=== PATIENT | female | born 1985 | race Caucasian/White ===

== ENCOUNTER 2025-09-02 01:44 | Emergency (ER) | payer BC, SELFPAY ==
--- OUTSIDE RECORDS SUMMARY | 2025-02-26 04:00 | XMS_ITS ---
Author Organization [facility] Address [address] [place] [address] Care Team Providers Care Aviation Neuropsychologist Name Role Phone DominikLoni Unavailable [phone] Migration, Provider Unavailable Unavailable REASON FOR VISIT EMR-Minor Encounters Encounter Location Date Provider Diagnosis [facility] [address] [place], [place] [id number] 02/26/2025 Prov ider Migration Plan Of Treatment No Information Progress Notes * BARRERA OTERO LDOB: 3 (40 yo F)Acc No.[id number]:02/26/2025 Patient: Naya SOTELO BARRERA Wylie :1985 A ge:39 Y S ex:Female Address:[address] [place] [address], [address] Subjective: * Chief Complaints: * E MR-Minor * * Date:
--- OUTSIDE RECORDS SUMMARY | 2025-02-27 04:00 | XMS_ITS ---
Author Organization [facility] Address [address] [place] [address] Care Team Providers Care Seater Grinder Name Role Phone DominikLoni Unavailable [phone] Migration, Provider Unavailable Unavailable REASON FOR VISIT EMR-Minor Encounters Encounter Location Date Provider Diagnosis [facility] [place] [address] [place], [place] [id number] 02/27/2025 Prov ider Migration Plan Of Treatment No Information Progress Notes * BARRERA OTERO LDOB: 3 (40 yo F)Acc No.[id number]:02/27/2025 Patient: Naya SOTELO BARRERA Wylie :1985 A ge:39 Y S ex:Female Address:[address] [place] [address], [address] Subjective: * Chief Complaints: * E MR-Minor * * Date:
[2025-09-02] VITALS (12 sets, daily range): BP systolic 130–143; BP diastolic 80–94; PULSE 108; RESP 16; TEMP 36.9; O2SAT 97–100
--- NOTE | ~2025-09-02 | XR_ITS ---
XR elbow RT 2V 09/02/2025 03:19 Indication: 2 views right elbow Procedure: 2 views right elbow Comparison: No prior studies for comparison. Findings: There is a joint effusion. No acute fracture identified. No foreign bodies. There is anatomic alignment. Impression: 1: Moderate joint effusion. No definitive fracture. Recommend follow-up x-ray in 7-to 10 days to assess for occult fracture as clinically warranted. Reviewed, dictated and finalized at location B. Impression: 1: Moderate joint effusion. No definitive fracture. Recommend follow-up x-ray i n 7-to 10 days to assess for occult fracture as clinically warranted.
--- NOTE | ~2025-09-02 | CT_ITS ---
EXAMINATION: CT elbow RT wo con DATE: 09/02/2025 04:17 INDICATION: Right elbow pain with joint effusion TECHNIQUE: High resolution computed tomography (CT) of the right elbow was performed without intravenous contrast. Additional sagittal and coronal reconstructions were performed. Automated exposure control and iterative reconstruction technique were employed. The dose-length product was 460.15 mGy-cm. COMPARISON: Radiograph dated 09/02/2025 FINDINGS: Bone alignment is normal. No fracture. Moderate-sized elbow joint effusion. Joint spaces appear relatively preserved. No cortical erosions or periosteal reaction. Soft tissues are otherwise unremarkable. IMPRESSION: 1. Moderate-sized right elbow joint effusion. No osseous abnormality. Reviewed, dictated and finalized at location A.
--- NOTE | ~2025-09-02 | XR_ITS ---
XR wrist RT min 3V 09/02/2025 03:19 INDICATION: Right wrist pain PROCEDURE: 4 views right wrist COMPARISON: No prior studies for comparison. FINDINGS: Fracture, dislocation or subluxation is not identified. The soft tissues appear within normal limits. No foreign bodies are identified. IMPRESSION: 1: NO ACUTE BONE OR JOINT ABNORMALITY IDENTIFIED. Reviewed, dictated and finalized at location B.
--- NOTE | 2025-09-02 02:44 | ED_ITS ---
HPI - Extremity Problem General Chief complaint: Extremity Problem,Nontraumatic Stated complaint: arm pain Time Seen by Provider: 09/02/25 02:31 Source: patient Mode of arrival: ambulatory Limitations: no limitations History of Present Illness HPI Narrative: Right hand dominant Patient presents with right arm pain. Yesterday morning she started to have pain at her right elbow, throughout, both poseteriorly and in the antecubital fossa. No neck/shoulder pain. Pain has progressed, extending into right wrist/hand. No trauma/ injury. Fingers not involved. Pain increases with any movement and she has decreased range of motion as makign a fist intensifies the pain. She took 200mg ibuprofen x2 tablts at 8pm. Has tried ice/heat. Describes it as a shooting pain. PCP Oksana Saeed through [facility] [place]. This has never happened before. No alex parethesias, just pain. 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 Denies having a pad that angulates her wrists at the desk when typing. Related Data Allergies Allergy/AdvReac Type Severity Reaction Status Date / Time acetaminophen (From Vicodin) AdvReac Nausea Verified 09/02/25 01:59 hydrocodone (From Vicodin) AdvReac Nausea Verified 09/02/25 01:59 PMFSH Past Medical History Medical History Right hand dominant Social History Social History Occupation/Education: occupation Additional occupation/education comments: employed (desk job, typing) Exam 2 Narrative: GENERAL: Well-appearing, well-nourished, occasionally in acute distress. HEAD: Normocephalic, atraumatic. EYES: Non injected, non icteric ENT: Nares clear, no rhinorrhea or epistaxis. Gross auditory acuity intact. NECK: Supple. No meningismus. CHEST: Speaking in full sentences. No respiratory distress. HEART: Tachycardic rate and rhythm. . ABDOMEN: Soft, nondistended. EXTREMITIES: COmpartments soft. Strong 2+ radial pulse and brisk capillary refill. Tenderness to palpation at the elbow and wrist but throughout, not localized. Mild edema. SKIN: Warm, dry, no rash. no erythema or ecchymosis or lacerations/abrasions/lesions NEURO: No focal deficits. Alert and oriented. Answering questions. Following commands. Normal speech without aphasia or dysarthria. Sensation intact throughout the upper elbow forearm and wrist, hyperalgesic. PSYCH: Normal mood and affect. Course Vital Signs Vital signs: Vital Signs Temperature 98.4 F 09/02/25 01:54 Pulse Rate 108 H 09/02/25 01:54 Respiratory Rate 16 09/02/25 01:54 Blood Pressure 143/80 H 09/02/25 01:54 Pulse Oximetry 98 09/02/25 01:54 Oxygen Delivery Room Air 09/02/25 01:54 Temperature 98.4 F 09/02/25 01:54 Pulse Rate 108 H 09/02/25 01:54 Respiratory Rate 16 09/02/25 01:54 Blood Pressure 133/86 09/02/25 03:01 Pulse Oximetry 99 09/02/25 05:00 Oxygen Delivery Room Air 09/02/25 01:54 MDM - Extremity (Nontraumatic) MDM Narrative Medical decision making narrative: Right hand dominant female Patient presents with right elbow and arm pain as well as wrist pain. No trauma/injury. In the emergency department she is afebrile with vital signs show mild tachycardia as well as mild hypertension. Given plain film interpretation, CT ordered. Normocytic anemia with no prior for comparison. CRP within normal limits. ESR is elevated. Patient was given Barnes (as well as Zofran since prior adverse effect of nausea from Vicodin). She tells the RN at approximately 5am still having pain, intiial had no effect. Toradol ordered. CPK normal. Unclear cause of patient's pain. Fits distribution of both lateral and medial epicondylitis but having both simultaneously is a bit strange. The distrubution is localized between wrist and elbow, not more proximally. Features don't extend fully distally to fingers. Patient may require EMG/nerve conduction study or MRI imaging alternatively. Discharged and advised follow up with PCP. Rx for OTC analgesic. Differential Diagnosis Differential diagnosis: Likely herpes zoster, cellulitis, superficial thrombophlebitis, deep venous thrombosis of upper extremity and other (epicondylitis; carpal tunnel; ulner/radial nerve radiculopathy; ischemia; brachial plexus injury) Lab Data Attestation: I reviewed the patient's lab results. Lab results narrative: normal renal function. 09/02/25 03:48 09/02/25 03:48 Labs: Lab Results 09/02/25 Range/Units 03:48 WBC 7.5 (4.5-10.0) K/mm3 RBC 4.00 L (4.2-5.4) M/mm3 Hgb 11.3 L (12.0-15.0) g/dL Hct 33.3 L (37.0-47.0) % MCV 83.3 (80-100) fl MCH 28.3 (26-34) pg MCHC 33.9 (32-36) g/dl RDW 11.9 (11.5-14.5) % Plt Count 284 (150-375) k/mm3 MPV 8.9 (7.4-10.4) fl Immature Gran % (Auto) 0.4 (0-0.5) % Neut % (Auto) 77.6 H (45.5-73.1) % Lymph % (Auto) 15.3 L (18.3-44.2) % Elmore % (Auto) 6.3 (2.6-8.5) % Eos % (Auto) 0.1 (0-4.4) % Baso % (Auto) 0.3 (0.2-1.2) % Lymph # (Auto) 1.15 (0.9-3.2) K/mm3 Elmore # (Auto) 0.5 (0.1-0.6) K/mm3 Eos # (Auto) 0.0 (0-0.3) K/mm3 Baso # (Auto) 0.0 (0.0-0.1) K/mm3 Abs Immat Gran (auto) 0.03 (0.00-0.031) K/mm3 Absolute Neuts (auto) 5.8 (1.3-6.7) K/mm3 Absolute Nucleated RBC 0.000 (0.0-0.012) K/mm3 Nucleated RBC % 0.0 (0.0-0.2) % ESR 56 H (0-20) mm/hr Sodium 136 L (137-145) mmol/L Potassium 3.8 (3.4-5.0) mmol/L Chloride 106 (98-107) mmol/L Carbon Dioxide 26 (22-30) mmol/L Anion Gap 4 (4-12) mmol/L BUN 8 (7-17) mg/dL Creatinine 0.49 L (0.7-1.0) mg/dL Estim Creat Clear Calc 117 ml/min Estimated GFR > 60 (59 - ) Glucose 106 (65-110) mg/dL Calcium 9.1 (8.4-10.2) mg/dL Total Creatine Kinase 33 (30-135) U/L C-Reactive Protein 1.0 (<1.0) mg/dL Imaging Data Attestation: I personally reviewed and interpreted this imaging study as follows: My impression: Initially elbow felt to be normal but based on overlapping bone structures, questionable appearance as well as possible posterior fat pad on my independent interpretation Radiologist's impression: XR R elbow Stat Rad: elbow joint effusion. No definitive fracture. Consider CT scan to rule out underlying occult fracture. XR R wrist STat Rad: No acute findings. No evidence of fracture. CT R upper extremity: Elbow joint effusion. No acute osseous abnormalities. Discharge Plan Discharge Clinical Impression: Elbow pain, right, Acute pain of right wrist, Normocytic anemia, Elevated erythrocyte sedimentation rate, Effusion, right elbow Patient Disposition: Home Condition: Stable Instructions: Antibiotic Form, Elbow Sprain (ED), Arthralgia (ED), Anemia (ED), P.R.I.C.E. Treatment (ED), Swollen Joint (ED), Elbow Strain (ED) Additional Instructions: Xray and CT scan did not reveal the cause of your symptoms. Acetaminophen/Tylenol (maximum 4000 mg per day) is safe to take with NSAIDs (ibuprofen/Motrin) for pain relief. Follow up with your primary care physician who may recommend altenative work up (e.g. advanced imaging, different pain strategies including but not limited to injections, physical therapy, etc. ) Return if new/worsening symptoms. IN the interim trial R-I-C-E (rest, ice, compression, elevation) for the first 48 hours of symptoms then transition to heat. Patient Language: Turkish Prescriptions: New ibuprofen 600 mg tablet 600 mg PO TID PRN (Reason: pain) Qty: 30 0RF acetaminophen 500 mg capsule 1,000 mg PO Q6H PRN (Reason: pain) Qty: 30 0RF Follow-up/Referrals: PHYSICIAN,DELINQUENCY PREVENTION OFFICER [Primary Care Provider, Internal Medicine] Stand Alone Forms: Work/School Release IP Time of Disposition: 06:30
[2025-09-02] MEDS: ONDANSETRON HCL ODT 4 MG TABLET PO (03:04)
[2025-09-02] MEDS: HYDROcodone/acetaminophen (*CRX) 5-325 MG TABLET 1 TAB PO (03:04)
--- OUTSIDE RECORDS SUMMARY | 2025-09-02 03:07 | XMS_ITS | Clinical Summary ---
Author Organization [facility] Address [facility] [place] [address] Care Team Providers Care Breakfast Supervisor Name Role Phone Ayesha Jackson NP Primary Care Provider [phone] [phone] Allergies Active Allergy Reactions Criticality Noted Date Comments Hydrocodone-Acetaminophen Nausea and Vomiting Low 1 01/26/2017 Medications rimegepant (NURTEC) 75 MG disintegrating tabletIndications:M enstrual migraine without status migrainosus, not intractable Take 1 tablet (75 mg total) by mouth daily as needed for Migraine. Max of 1 tablet (75 mg) in 24 hours. 8 tablet 4 Active almotriptan (AXERT) 12.5 MG tabletIndications:M enstrual migraine without status migrainosus, not intractable Take 0.5 tablets (6.25 mg total) by mouth as needed for Migraine. may repeat in 2 hours if needed 2 tablet 4 Active methylPREDNISolone, SOCRATES, (MEDROL DOSEPAK) 4 MG tabletIndications:N on-recurrent acute suppurative otitis media of right ear without spontaneous rupture of tympanic membrane Take as directed 1 each 4 Active Active Problems Problem Noted Date Diagnosed Date Hemorrhoids, unspecified hemorrhoid type 021 Menstrual migraine without s tatus migrainosus, not intractable 07/06/2021 Vitamin D deficiency 07/06/2021 Status post section 12/10/2018 Encounters Date Type Department Care Team Description 07/07/2025 Scan [facility] Scanned, Doc Med Group 06/02/2025 Results Follow-Up [facility] Family [facility] - [place] [address] [place] [address] Ayesha Jackson, RENETTA STREP A RAPID, CORONAVIRUS (COVID-19) INFLUENZA A & B ANTIGEN IA PANEL, HETEROPHILE ANTIBODIES,SCREEN, CULTURE STREP A (MG/SJS/SMD Only) from Last 3 Months Immunizations Immunization Administration Dates Next Due Dtp 06/18/1988,02/20/1985,02/08/1984 ,1983,1983 Hepatitis B Pediatric 09/15/1998,07/21/1998 Hib 07/26/1986 Hib (Generic) 07/26/1986 Influenza (Generic) 09/09/2018 MMR 05/23/1992,11/27/1984 Opv 06/18/1988,02/20/1985,02/08/1984 ,1983,1983 Polio Opv (Generic) 06/18/1988,02/20/1985,1983,1983,1983 Td 06/17/1997 Tdap (Generic) 10/10/2018 Family History Medical History Relation Comments No Known Problems Brother No Known Problems Father No Known Problems Maternal Aunt No Known Problems Maternal Grandfather No Known Problems Maternal Grandmother No Known Problems Maternal Uncle Alcohol Abuse Mother No Known Problems Paternal Aunt Cancer Paternal Grandfather Brain cance r No Known Problems Paternal Grandmother No Known Problems Paternal Uncle No Known Problems Sister Relation Status Comments Brother Father Alive Maternal Aunt Maternal Grandfather Maternal Grandmother Maternal Uncle Mother Alive Paternal Aunt Paternal Grandfather Paternal Grandmother Paternal Uncle Sister Social History Tobacco Use Types Packs/Day Years Used Date Smoking Tobacco: Never Passive Smoke Exposure: Never Smokeless Tobacco: Never Tobacco Cessation:Counseling Given: No Alcohol Use Standard Drinks/Week Comments Not Currently 0 (1 standard drink = 0.6 oz pur e alcohol) PHQ-2 Answer Date Recorded Patient Health Questionnaire-2 Score 0 05/31/2025 Comments No Sex and Gender Information Value Date Recorded Sex Assigned at Female 05/31/2025 10:57 AM CDT Legal Sex Female 7:19 PM CDT Gender Identity Female 05/31/2025 10:57 AM CDT Sexual Orientation Not on file Last Filed Vital Signs Vital Sign Reading Time Taken Comments Blood Pressure 110/60 05/31/2025 10:58 AM CDT Pulse 97 05/31/2025 11:27 AM CDT Temperature 37.9 C (100.2 F) 05/31/2025 10:58 AM CDT Respiratory Rate 16 05/31/2025 10:58 AM CDT Oxygen Saturation 100% 05/31/2025 11:27 AM CDT Inhaled Oxygen Concentration - - Weight 85.8 kg (189 lb 3.2 oz) 05/31/2025 10:58 AM CDT Height 170.2 cm (5' 7) 05/31/2025 10:58 AM CDT Body Mass Index 29.63 05/31/2025 10:58 AM CDT Plan of Treatment Health Maintenance Due Date Last Done Comments Cervical Cancer Screening Pap Smear (Age 30 to 64) Every 3 Years 1983 Hepatitis B Vaccines (3 of 3 - 3-dose series) 11/10/1998 09/15/1998, 07/21/1998 HPV Vaccines (1 - 3-dose SCDM series) 2010 Cervical Cancer Screening Pap with HPV Testing (Age 30 to 64) Every 5 Years 2013 Cervical Cancer Screening with HPV 2013 Mammogram Screening 2023 Annual Physical 01/14/2025 01/14/2024, 11/01, 07/06/2021 COVID-19 Vaccine ( - season) 2025 08/03/2021, 07/13/2021 Influenza Adult (#1) 2025 09/09/2018 DTaP, Tdap and Td Vaccines (3 - Td or Tdap) 10/10/2028 10/10/2018, 06/17/1997, 06/18/1988, Additional history exists Hepatitis C Completed 07/13/2021 PHQ-2 (Physician [place]) Completed 05/31/2025 Meningococcal B Vaccine Aged Out No l onger eligible based on patient's age to complete this topic Meningococcal Vaccine Aged Out No nicholas tessie eligible based on patient's age to complete this topic Pneumococcal Vaccine: Pediatrics (0 to 5 Years) and At-Risk Patients (6 to 49 Years) Aged Out No longer eligible based on patient's age to complete this topic RSV Immunizations Under 20 Months Aged Out No longer eligible based on patient's age to complete this topic Procedures Procedure Name Priority Date/Time Associated Diagnosis Comments HEPATITIS C ANTIBODY W/RFX TO HCV RNA Routine 07/13/2021 10:01 AM CDT Need for hepatitis C screening test from Last 3 Months or Most Recently Relevant to Health Maintenance Results * HEPATITIS C ANTIBODY W/RFX TO HCV RNA ([facility]) (07/13/2021 10:01 AM CDT) HEPATITIS C AB <0.1 0.0 - 0.9 s/co ratio [facility] INTERPRETATION Comment [facility] Comment: Negative Not infected with HCV, unless recent infection is suspected or other evidence exists to indicate HCV infection. 07/13/2021 10:0 1 AM CDT 07/13/2021 Narrative [facility] - 07/14/2021 8:07 AM CDT Performed at: [address] [facility] [id number] Dough Panner: Kojo Camp PhD, Phone: [phone] Ayesha Jackson NP LABORATORY Final Res ult [facility] [address] [place] [address] [facility] 1 from Last 3 Months or Most Recently Relevant to Health Maintenance Insurance [facility] Care Teams Breakfast Supervisor Relationship Specialty Start Date End Date Ayesha Jackson NP [address] [facility] [address] [place] [address] PCP - General NURSE PRACTITIONER 06/12/21
--- OUTSIDE RECORDS SUMMARY | 2025-09-02 03:07 | XMS_ITS | Patient Health Record ---
Author Organization 1 OF [facility]i la[facility] Address [address] [facility] [address] [place] [address] Care Team Providers Care Brand Marketing Specialist Name Role Phone Shady Bella PA-C Primary Care Provider Aleida Ann Unavailable [phone] Allergies Allergen (clinical drug ingredient) Drug/Non Drug Allergy documented on EMR Reaction Allergy Type Onset Date Status Vicodin Unknown Drug Allergy Active Reason For Referral No Information Medications Medication SIG (Take, Route, Frequency, Duration) Notes Start Date End Date Status + DHA 27-1 & 250 MG Therapy Pack as directed Orally Active Meloxicam 15 MG Tablet TAKE 1 TABLET BY MOUTH EVERY DAY; Duration: 30 Active Diclofenac Sodium 1 % Gel as directed To pical Apply no more than 4 grams to affected area of foot Q6-8 hours PRN Pain; Duration: 30 days 01/03/2023 Active Social History Tobacco Use: Social History Observation Description Date Details (start date - stop date) Never Smoker NA - NA Social History Drugs/Alcohol: Social Info Question Answer Notes Drugs Have you used drugs other than those for medical reasons in the past 12 months? No Tobacco Use: Social Info Question Answer Notes Tobacco Use/Smoking Are you a nonsmoker Additional Details Category Social Info Options Details Miscellaneous: Exercise: Sedentary Occupation: Works full-time Living with: Partner Drugs/Alcohol: Alcohol use: Social alcoho l use Problems Problem Type SNOMED Code ICD Code Onset Dates Problem Status W/U Status Risk Notes Problem Plantar fasciitis (523297312) Plantar fasciitis (M72.2) Active confirmed Problem Plantar wart of right foot (3915275820237 9101) Plantar wart of right foot (B07.0) Active confirmed Plan Of Treatment No Information Insurance Providers Payer Name Payer Address Payer Phone Subscriber Number Group Number Insured Name Patient Relationship to Insured Coverage Start Date Coverage End Date [facility] [address] [place] [address] [id number] March, Taylor Self - patient is the insured Medical (General) History Medical History History ICD Code Depression Migraines Surgical History Surgery Date(Month/Year)
--- OUTSIDE RECORDS SUMMARY | 2025-09-02 03:07 | XMS_ITS | Encounter Summary ---
Author Organization [facility] Address [address] [place] [address] Care Team Providers Care Baker Pie Name Role Phone Ayesha Jackson BUSINESS OBJECTS Primary Care Provider [phone] Encounter Details Date Type Department Care Team (Late st Contact Info) Description 10/17/2022 [facility] Message Enc [facility] Family Medicine - [place] [address] [facility] [address] [place] [address] [facility] Annual physical Social History Tobacco Use Types Packs/Day Years Used Date Smoking Tobacco: Never Smokeless Tobacco: Never Alcohol Use Standard Drinks/Week Comments Yes 0 (1 standard drink = 0.6 oz pur e alcohol) PHQ-2 Answer Date Recorded PHQ-2 Score - If the patient scores above 3, please move on to questions 3-9 0 10/04/2021 Comments No Sex and Gender Information Value Date Recorded Sex Assigned at Female 05/31/2025 10:57 AM CDT Legal Sex Female 7:19 PM CDT Gender Identity Female 05/31/2025 10:57 AM CDT Sexual Orientation Not on file documented as of this encounter Plan of Treatment Not on file documented as of this encounter Visit Diagnoses Not on filedocumented in this encounter Additional Health Concerns Infection Onset Date Last Indicated Resolved Time Respiratory Rule Out 05/31/2025 05/31/2025 025 11:32 AM CDT Assessment Noted Time PHQ-9 Depression Total Score: 0 10/04/20 21 8:24 AM CDT documented as of this encounter Care Teams Baker Pie Relationship Specialty Start Date End Date Ayesha Jackson NP [address] [place] [address] PCP - General NURSE PRACTITIONER 06/12/21 documented as of this encounter
--- OUTSIDE RECORDS SUMMARY | 2025-09-02 03:07 | XMS_ITS | Encounter Summary ---
Author Organization [facility] Address [address] [place] [address] Care Team Providers Care Auto Electrical Technician Name Role Phone Ayesha Jackson LINUX KERNEL ENGINEER Primary Care Provider [phone] [phone] Encounter Details Date Type Department Care Team (Late st Contact Info) Description 05/31/2025 L[employer] Message Enc [facility] Family Medicine [facility] [address] [facility] [address] [place] [address] Ayesha Jackson, LINUX KERNEL ENGINEER [address] [place] [address] Virus Social History Tobacco Use Types Packs/Day Years Used Date Smoking Tobacco: Never Passive Smoke Exposure: Never Smokeless Tobacco: Never Alcohol Use Standard Drinks/Week Comments Not Currently [...] on file documented as of this encounter Functional Status * Over the past 2 weeks, how often have you been bothered by any of the following problems? Question Answer Date of Assessment Author Status Little interest or pleasure in doing things Not at all 05/31/2025 10:57 AM CRISTINOT Cordelia Braswell MA Act chasity Feeling down, depressed, or hopeless Not at all 05/31/2025 10:57 AM CDT Cordelia Braswell MA Active Patient Health Questionnaire-2 Score 0 05/31/2025 10:57 AM CDT Cordelia Braswell MA Active documented as of this encounter Plan of Treatment Not on file documented as of this encounter Visit Diagnoses Not on filedocumented in this encounter Additional Health Concerns Infection Onset Date Last Indicated Resolved Time Respiratory Rule Out 05/31/2025 05/31/2025 025 11:32 AM CDT Assessment Noted Time PHQ-9 Depression Total Score: 0 10/04/20 21 8:24 AM CDT documented as of this encounter Care Teams Auto Electrical Technician Relationship Specialty Start Date End Date Ayesha Jackson NP [address] [place] [address] PCP - General NURSE PRACTITIONER 06/12/21 documented as of this encounter
--- OUTSIDE RECORDS SUMMARY | 2025-09-02 03:07 | XMS_ITS | Encounter Summary ---
Author Organization [facility] Address [address] [place] [address] Care Team Providers Care Control Systems Developer Name Role Phone Ayesha Jackson ASSISTANT CORPORATE SECRETARY Primary Care Provider [phone] Encounter Details Date Type Department Care Team (Late st Contact Info) Description [facility] Family Medicine - [place] [address] [facility] [address] [place] [address] Ayesha Jackson, ASSISTANT CORPORATE SECRETARY [address] [place] [address] Question regarding VITAMIN D, CALCIFEDIOL Social History Tobacco Use Types Packs/Day Years [...] AM CDT Sexual Orientation Not on file COVID-19 Exposure Response Date Recorded In the last month, have you been in contact with someone who was confirmed or suspected to have Coronavirus / COVID-19? No / Unsure 10/04/2021 8:15 AM CDT documented as of this encounter Plan of Treatment Not on file documented as of this encounter Visit Diagnoses Not on filedocumented in this encounter Additional Health Concerns Infection Onset Date Last Indicated Resolved Time Respiratory Rule Out 05/31/2025 05/31/2025 025 11:32 AM CDT Assessment Noted Time PHQ-9 Depression Total Score: 0 10/04/20 21 8:24 AM CDT documented as of this encounter Care Teams Control Systems Developer Relationship Specialty Start Date End Date Ayesha Jackson NP [address] [place] [address] PCP - General NURSE PRACTITIONER 06/12/21 documented as of this encounter
--- OUTSIDE RECORDS SUMMARY | 2025-09-02 03:07 | XMS_ITS | Encounter Summary ---
Author Organization [facility] Address [address] [place] [address] Care Team Providers Care Ranch Hand Supervisor Name Role Phone Ayesha Jackson CARD MAKER Primary Care Provider [phone] Encounter Details Date Type Department Care Team (Latest Contact Info) Description 03/15/2022 [employer] Message Enc [facility] Family Medicine - [place] [address] [place] [address] Ayesha Jackson, RENETTA [address] [place], [place] [id number] PRIOR AUTHORIZATION [facility] Social History Tobacco Use Types Packs/Day Years [...] on file documented as of this encounter Progress Notes * Ailyn Leger - 04/19/2022 2:52 PM Elvin Robles MA 04/19/2022 1:17 PM CDT Are you able to tell her how much a office visit will cost her? Copy of her new insurance card is in her chart (under [employer] messages.) I have no idea what to tell her thanks ----- Message ----- From: Taylor Duggan Sent: 04/19/2022 8:16 AM CDT To: Ayesha Whitmore Subject: PRIOR AUTHORIZATION NURTEC Attached is my new insurance ca rd. Can you please let me know how much a visit would cost? With the current state of the economy I???m not sure if I can afford it but I need the medication so I don???t miss work. documented in this encounter Plan of Treatment Not on file documented as of this encounter Visit Diagnoses Not on filedocumented in this encounter Additional Health Concerns Infection Onset Date Last Indicated Resolved Time Respiratory Rule Out 05/31/2025 05/31/2025 025 11:32 AM CDT Assessment Noted Time PHQ-9 Depression Total Score: 0 10/04/20 21 8:24 AM CDT documented as of this encounter Care Teams Ranch Hand Supervisor Relationship Specialty Start Date End Date Ayesha Jackson NP [address] [place] [address] PCP - General NURSE PRACTITIONER 06/12/21 documented as of this encounter
--- OUTSIDE RECORDS SUMMARY | 2025-09-02 03:07 | XMS_ITS | Patient Health Record ---
Author Organization [facility] Address [address] [place], [place] [address] Care Team Providers Care Customs Agent Name Role Phone Loni Lehman Unavailable [phone] Migration, Provider Unavailable Unavailable Allergies Allergen (clinical drug ingredient) Drug/Non Drug Allergy documented on EMR Reaction Allergy Type Onset Date Status Vicodin Unknown Drug Allergy Active Results Component Value Reference Range Flag Notes THINPREP TIS PAP AND HPV mRN A E6/E7 WITH REFLEX TO HPV 16,18/45 (52808) Reviewed date:05/23/2025 12:28:01 PM Interpretation: Performing Lab:[id number], [id number] Gonzalez Bella, Director - [facility] Administration [employer] Notes/Report: FASTING: UNKNOWN CLINICAL INFORMATION: N Non e given LMP: N NONE GIVEN PREV. PAP: N NONE GIVEN PREV. BX: N NONE GIVEN SOURCE: N None given STATEMENT OF ADEQUACY: N Satisfactory for evaluation. Endocervical/transformati on zone component present. Age and/or menstrual status not provided INTERPRETATION/RESULT: N Cytology Results: Negative for intraepithelial lesion or malignancy. COMMENT: N This Pap test has been evaluated with computer assisted technology. PRODUCTION SUPERVISOR OFF SHIFT: BIJAN PALMA(ASCP) CT screening location: [place] [address] [place] [address] COMMENT EXPLANATORY NOTE: The Pap is a screening test for cervical cancer. It is not a diagnostic test and is subject to false negative and false positive results. It is most reliable when a satisfactory sample, regularly obtained, is submitted with relevant clinical findings and history, and when the Pap result is evaluated along with historic and current clinical information. HPV mRNA E6/E7 Not Detected Not Detected N Methodology: Plant Equipment Engineer-Mediated Amplification This assay detects E6/E7 viral messenger RNA (mRNA) from 14 high-risk HPV types (16,18,31,33,35,39,45,51, 52,56,58,59,66,68). Cervical sources are required for HPV testing. If a vaginal source from a patient who has had a total hysterectomy with removal of cervix was submitted, please contact the testing laboratory for alternative testing options. For additional information, please refer to [email or web address] (This link if provided for information/ educational purposes only.) Reason For Referral No Information Medications Medication SIG (Take, Route, Frequency, Duration) Notes Start Date End Date Status Nurtec 75 MG Tablet Disintegrating 1 tablet on the tongue and allow to dissolve Orally Active Social History Social History Drug/Alcohol: Social Info Question Answer Notes Drugs Have you use non pre scription recreational drug(s) in past 12 months? No Alcohol Screen How often did you flynn ve a drink containing alcohol in the past year? none/never - 0 Tobacco Use: Social Info Question Answer Notes Smoking History Are you a tobacco smoker / vaper? nons moker Vital Signs Height-cm 167.64 cm 05/16/2025 Blood pressure diastolic 78 mm Hg 05/16/2025 Weight-kg 88.91 kg 05/16/2025 Height 66 in 05/16/2025 Blood pressure systolic 128 mm Hg 05/16/2025 Weight 196 lbs 05/16/2025 BMI 31.63 kg/m2 05/16/2025 Encounters Encounter Location Date Provider Diagnosis [address] [place] [address] 05/16/2025 Loni Lehman Well woman exam with routine gynecological exam Z01.419 ; Screening for cervical cancer Z12.4 and Screening for breast cancer Z12.39 [facility] [address] [place] [id number] 02/26/2025 Provider Migration [facility] [address] [place] [id number] 02/27/2025 Provider Migration Assessments Encounter Date Diagnosis (ICD Code) Assessment Notes Treatment Notes Treatment Clinical Notes Section Notes 05/16/2025 Well woman exam with routine gynecological exam (ICD-10 - Z01.419) 05/16/2025 Screening for cervical cancer (ICD-10 - Z12.4) 05/16/2025 Screening for breast cancer (ICD-10 - Z12.39) 05/16/2025 Iram Vazquez is a 39 y/o presenting for well woman exam 1. Well Woman Exam: - Pap + HPV collected - will call with abnormal results 2. Breast Health: - Mammogram needs to be done - order form for [facility] given to patient - Clinical breast exam WNL - Encouraged breast self-awareness 3. Routine Health Maintenance: - Encouraged healthy lifestyle modifications 4. Follow-up in one year or as needed Loni Lehman MD FACOG Plan Of Treatment No Information Insurance Providers Payer Name Payer Address Payer Phone Subscriber Number Group Number Insured Name Patient Relationship to Insured Coverage Start Date Coverage End Date [employer] [address] [place] [address] [id number] MARCH, BARRERA Self - patient is the insured Medical (General) History Medical History History ICD Code Migraines with aura (worse with menses) MTHFR Surgical History Surgery Date(Month/Year) x 1 Hysteroscopic IUD removal [place] teeth
--- OUTSIDE RECORDS SUMMARY | 2025-09-02 03:07 | XMS_ITS | Clinical Summary ---
Author Organization [facility] Address [address] [place] [address] Care Team Providers Care Flour Distributor Name Role Phone Ayesha Jackson Primary Care Provi mis Source Comments [facility],non-owned Affiliates and Associated Physician Practices is amultiple site organization consisting of ambulatory clinics and hospital sitesin [place], [place], [place] and [place]. This disclosure is being madepursuant to the Care Everywhere program and may not contain all information available regarding this patient. Last updated 18.[facility] Allergies Active Allergy Reactions Criticality Noted Date Comments Hydrocodone-Acetaminophen Nausea and/or Vomiting Low 11/25/2017 Hydrocodone-Acetaminophen 11/25/2017 Medications * Be aware that medications may not be up to date on this document. Alwaysverify current medications with the patient. predniSONE (DELTASONE) 20 MG tablet Take 2 tabs for 4 days, 1 tab for 3 days, 1/2 tab for 2 days 12 tablet 1 Active Additional Information Patient not taking.Reported on 03/25/2023 Nurtec 75 MG tablet TAKE 1 TABLET ON OR UNDER THE TONGUE ONCE A DAY NEEDED FOR MIGRAINE. MAX 1 TABLET PER 24 HOURS 3 Active ipratropium (Atrovent) 0.03 % nasal spray Harbert 1-2 sprays into each nostril 3 times daily 30 mL 3 Active Additional Information Patient not taking.Reported on 06/22/2024 albuterol HFA (Proventil; Ventolin; Proair) 108 (90 Base) MCG/ACT inhaler Inhale 2 (two) puffs by mouth every 6 hours as needed 6.7 g Active Additional Information Patient not taking.Reported on 08/20/2024 Active Problems No known active problems Family History Relation Name Status Comments Father Alive Mother Alive Social History Tobacco Use Types Packs/Day Years Used Date Smoking Tobacco: Never Smokeless Tobacco: Never Tobacco Cessation:Counseling Given: Not Answered Alcohol Use Standard Drinks/Week Comments Never 0 (1 standard drink = 0.6 oz pur e alcohol) Comments No Sex and Gender Information Value Date Recorded Sex Assigned at Not on file Legal Sex Female 10:34 AM SCREEN OPERATOR Gender Identity Not on file Sexual Orientation Not on file Last Filed Vital Signs Vital Sign Reading Time Taken Comments Blood Pressure 122/68 08/20/2024 9:13 AM CDT Pulse 110 08/20/2024 9:13 AM CDT Temperature 36.9 C (98.4 F) 08/20/2024 9:13 AM CDT Respiratory Rate 18 08/20/2024 9:13 AM CDT Oxygen Saturation 100% 08/20/2024 9:13 AM CDT Inhaled Oxygen Concentration - - Weight 89.4 kg (197 lb) 08/20/2024 9:13 AM CDT Height 167.6 cm (5' 6) 08/20/2024 9:13 AM CDT Body Mass Index 31.8 08/20/2024 9:13 AM CDT Plan of Treatment Health Maintenance Due Date Last Done Comments LIPID TESTING 1983 MAMMOGRAM 1983 HIV SCREENING 1998 DTAP/TDAP/TD VACCINES (1 - Tdap) 2002 HEPATITIS B VACCINE (1 of 3 - 19+ 3-dose series) 2002 PAP SMEAR 2004 HPV VACCINE (1 - 3-dose SCDM series) 2010 SCREENING FOR DIABETES 06/22/2024 DEPRESSION SCREENING 12/01/2024 COVID-19 VACCINE (3 - 2024-2 6 season) 2025 08/03/2021, 07/13/2021 INFLUENZA VACCINE (#1) 2025 8, 08/13/2018 ZOSTER VACCINE (1 of 2) 2033 HEPATITIS C SCREENING Completed 07/13/2021 HIB VACCINE Aged Out No longer eligi ble based on patient's age to complete this topic MENINGOCOCCAL (Group B) VACCINE SHARED DECISION-MAKING Aged Out No longer eligible based on patient's age to complete this topic MENINGOCOCCAL GROUPS A/C/Y/W VACCINE Aged Out No longer eligible b ased on patient's age to complete this topic PNEUMOCOCCAL VACCINE Aged Out No long er eligible based on patient's age to complete this topic Insurance ANTHEM Care Teams Flour Distributor Relationship Specialty Start Date End Date Ayesha Jackson, HEALTHCARE APPLICATIONS ANALYST-SCARF AND ANNEAL OPERATOR [address] [place] [address] PCP - General Nurse Practitioner 08/20/24
--- OUTSIDE RECORDS SUMMARY | 2025-09-02 03:07 | XMS_ITS | Encounter Summary ---
Author Organization [facility] Address [address] [place] [address] Care Team Providers Care Ldr Nurse Name Role Phone Ayesha Jackson PLATFORM MATERIAL HANDLING SUPERVISOR Primary Care Provider [phone] Encounter Details Date Type Department Care Team (Late st Contact Info) Description 01/13/2024 [employer] Message Enc [facility] Family Medicine - [place] [address] [place] [address] Ayesha Jackson, PLATFORM MATERIAL HANDLING SUPERVISOR [address] [place] [address] Blood Test Results - March Social History Tobacco Use Types Packs/Day Years Used Date Smoking Tobacco: Never Smokeless Tobacco: Never Alcohol Use Standard Drinks/Week Comments Yes 0 (1 standard drink = 0.6 oz pur e alcohol) PHQ-2 Answer Date Recorded Patient Health Questionnaire-2 Score 0 01/14/2024 Comments No Sex and Gender Information Value [...] pleasure in doing things Not at all 01/14/2024 8:18 AM Cordelia Ellington MA Acti ve Feeling down, depressed, or hopeless Not at all 01/14/2024 8:18 AM Cordelia Ellington MA Active Patient Health Questionnaire-2 Score 0 01/14/2024 8:18 AM Cordelia Ellington M A Active * If you checked off any problems on this questionnaire so far, Question Answer Date of Assessment Author Status How difficult have these problems made it for you to do your work, take care of things at home, or get along with other people? Not difficult at all 01/14/2024 8:18 AM Cordelia Ellington MA Active documented as of this encounter [...] documented as of this encounter Care Teams Ldr Nurse Relationship Specialty Start Date End Date Ayesha Jackson NP [address] [place] [address] PCP - General NURSE PRACTITIONER 06/12/21 documented as of this encounter
--- OUTSIDE RECORDS SUMMARY | 2025-09-02 03:08 | XMS_ITS | Encounter Summary ---
Author Organization [facility] Address [address] [place] [address] Care Team Providers Care Endoscopy Support Specialist Name Role Phone Ayesha Jackson WEBSPHERE CONSULTANT Primary Care Provider [phone] Encounter Details Date Type Department Care Team (Late st Contact Info) Description 08/23/2024 Write.myt Message Enc [facility] Family Medicine - [place] [address] [place] [phone] Ayesha Jackson, RENETTA [address] [place] [address] Ear Infection Social History Tobacco Use Types Packs/Day Years [...] documented as of this encounter Care Teams Endoscopy Support Specialist Relationship Specialty Start Date End Date Ayesha Jackson NP [address] [place] [address] [place] [address] PCP - General NURSE PRACTITIONER 06/12/21 documented as of this encounter
[2025-09-02 03:53] LABS: Hematocrit 33.3 % (37.0-47.0); Hemoglobin 11.3 g/dL (12.0-15.0); Immature Granulocyte Percent A 0.4 % (0-0.5); Lymphocytes Absolute Auto 1.15 K/mm3 (0.9-3.2); Mean Corpuscular HGB Conc 33.9 g/dl (32-36); Mean Corpuscular Hemoglobin 28.3 pg (26-34); Mean Corpuscular Volume 83.3 fl (80-100); Nucleated Red Blood Cells Absolute Auto 0.000 K/mm3 (0.0-0.012); Nucleated Red Blood Cells Perc 0.0 % (0.0-0.2); Platelet Count Result 284 k/mm3 (150-375); Red Blood Count 4.00 M/mm3 (4.2-5.4); White Blood Count 7.5 K/mm3 (4.5-10.0)
[2025-09-02 04:09] LABS: Anion Gap 4 mmol/L (4-12); Blood Urea Nitrogen 8 mg/dL (7-17); CRP 1.0 mg/dL (<1.0); Calcium 9.1 mg/dL (8.4-10.2); Carbon Dioxide 26 mmol/L (22-30); Chloride 106 mmol/L (98-107); Estimated CRCL calculation 117 ml/min; Estimated Glomerular Filt Rate > 60; Glucose 106 mg/dL (65-110); Potassium 3.8 mmol/L (3.4-5.0); Sodium 136 mmol/L (137-145)
[2025-09-02] MEDS: KETOROLAC 30 MG/ML VIAL (*BKC) 15 MG IM (05:23)
[2025-09-02 05:56] LABS: Creatine Kinase 33 U/L (30-135)
== END 2025-09-02 06:52 | disposition home or self-care (01) ==
PROVIDERS: Emergency Provider Student in an Organized Health Care Education/Training Program
DX: M25.521 Pain in right elbow (principal); M25.421 Effusion, right elbow; M25.531 Pain in right wrist; D64.9 Anemia, unspecified; R70.0 Elevated erythrocyte sedimentation rate
CPT/HCPCS: 36415; 73070; 73110; 73200; 80048; 82550; 85025; 85652; 86140; 96372; 99284; A9270; J1885